=== PATIENT | male | born 1960 | race Caucasian/White ===

== ENCOUNTER → 2019-05-12 | Outpatient (REF) ==
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
== END | disposition home or self-care (01) ==
LOC: OCC 11:20
PROVIDERS: ATTEND Family Medicine
CPT/HCPCS: 72040; 72100

== ENCOUNTER → 2019-05-31 | Outpatient (REF) ==
--- NOTE | 2019-05-31 16:43 | Diagnostic Imaging Report ---
PROCEDURE: MR imaging cervical spine without contrast. TECHNIQUE: Multiplanar, multisequence MR imaging of the cervical spine was performed without contrast. INDICATION: Neck pain. COMPARISON: There are no prior MRI examinations available for comparison. FINDINGS: The plain film examination of the cervical spine performed on 05/12/2019 failed to show any sign of an acute bony abnormality. The T2 parasagittal images of this exam show the vertebral body heights and alignment to be generally within normal limits. There is desiccation of the disc at every level and there is mild narrowing of the disc spaces at C5-C6 and C6-C7. At the C5-C6 level there is a disc bulge eccentric to the left. The disc compresses the left ventral aspect of the thecal sac and narrows the AP diameter to approximately 6.9 mm. There is also narrowing of the neural foramen on the left at this level and mild narrowing of the neural foramen on the right. At the C6-C7 level there is a disc bulge centrally. The disc effaces the ventral aspect of the thecal sac and narrows the AP diameter to approximately 10.8 mm. There is mild neural foraminal narrowing bilaterally at this level. At the C4-C5 level there is also a broad-based disc bulge centrally. The AP diameter of the thecal sac is narrowed to 9.1 mm. There is moderate narrowing of the neural foramen on the right at this level. The remainder of the cervical spine is unremarkable for spinal stenosis or nerve root encroachment. There is no abnormal signal arising from the cord or other vertebral bodies to indicate an acute abnormality. There is no sign of a paraspinal mass. However, there does appear to be an elongated 1.0 x 3.6 cm density extending from the base of the tongue towards the prevertebral space at C2-C3 just to the right of midline. This could be related to a collection of mucus as opposed to a mass. Direct visualization would be recommended. IMPRESSION: 1. There is degenerative disc, ligamentous, and bony disease at C4-C5 C5-C6 and C6-C7. The C5-C6 level is the most severely affected as there is spinal stenosis on the left with narrowing of the neural foramen on the left. 2. There is no acute bony abnormality identified and there is no sign of a cord lesion. 3. The elongated density extending from the base of the tongue to the prevertebral space just to the right of midline may be related to mucus as opposed to a soft tissue mass. Direct visualization would be recommended. Dictated by: Dictated on workstation # [id number]
== END ==
LOC: OCC 05-30 14:15 → MERGE 05-30 15:06 → OCC 15:30
PROVIDERS: ATTEND Family Medicine
DX: M50.121 Cervical disc disorder at C4-C5 level with radiculopathy (principal); M48.02 Spinal stenosis, cervical region; M47.22 Other spondylosis with radiculopathy, cervical region
CPT/HCPCS: 72141

== ENCOUNTER → 2019-07-11 | Outpatient (CLI) | payer OTHER ==
--- NOTE | 2019-07-11 15:23 | Diagnostic Imaging Report ---
PROCEDURE: MRI lumbar spine. TECHNIQUE: Multiplanar, multisequence MRI of the lumbar spine was performed without contrast. INDICATION: Low back pain. COMPARISON: Lumbar spine radiographs from 05/12/2019. FINDINGS: There are five lumbar-type vertebral bodies for the purposes of this report. Normal alignment. Vertebral body heights are preserved. Mild diffuse degenerative endplate changes. Benign hemangioma in the T12 vertebral body. Bone marrow signal is otherwise unremarkable. No abnormal signal in the conus which terminates at L1-L2. Normal morphology of the cauda equina. Partially visualized cyst in the right kidney measures at least 3.5 cm. L1-L2: No spinal canal, lateral recess, or neuroforaminal narrowing. L2-L3: Annular disc bulge results in mild spinal canal and bilateral lateral recess narrowing. No neuroforaminal narrowing. L3-L4: Annular disc bulge and ligamentous hypertrophy result in moderate bilateral lateral recess and mild spinal canal narrowing. [id number] bilateral neuroforaminal narrowing. L4-L5: Left central disc protrusion contributes to severe left and mild right lateral recess narrowing. Mild spinal canal narrowing. Moderate bilateral neuroforaminal narrowing. L5-S1: No substantial spinal canal or lateral recess narrowing. [id number] bilateral neuroforaminal narrowing. IMPRESSION: 1. Spondylotic changes result in no high-grade spinal canal narrowing. There is multilevel high-grade lateral recess and neuroforaminal narrowing, detailed above. 2. No acute MRI findings in the lumbar spine. Dictated by: Dictated on workstation # [id number]
== END ==
LOC: RAD 14:39
PROVIDERS: ATTEND Orthopaedic Surgery Orthopaedic Surgery of the Spine
DX: M48.07 Spinal stenosis, lumbosacral region (principal); M47.816 Spondylosis without myelopathy or radiculopathy, lumbar region; M51.26 Other intervertebral disc displacement, lumbar region
CPT/HCPCS: 72148